=== PATIENT | female | born 2000 | race Caucasian/White ===

== ENCOUNTER 2020-12-21 03:11 | Emergency (ER) | payer MEDICAID ==
[~2020-12-21] VITALS: Ht 160 cm; Wt 43.2 kg
[~2020-12-21 03:11] MED LIST: DIVA-81 PO; QUET200T5 PO
--- NOTE | 2020-12-21 04:42 | NUR ---
pt sleeping on left side, unresponsive to verbal or painful stimuli. dr. greene ordering more narcan. pt spo2 96%
[2020-12-21] MEDS ORDERED: naloxone 0.4 mg/ml inj NAS ONE (04:45)
[2020-12-21] MEDS ORDERED: NALO4SPR BOTHNARES (04:55)
[2020-12-21 09:18] VITALS: BP 106/65
--- NOTE | 2020-12-21 09:24 | NUR ---
pt vitals stable spo2 100% on ra ,pt wakes up with voice asked if she has family in [place] pt said yes and noded head but still not full awake.
== END 2020-12-21 11:52 | disposition home or self-care (01) ==
LOC: ER 03:12
DX: T40.1X1A Poisoning by heroin, accidental (unintentional), initial encounter (principal); R45.1 Restlessness and agitation; J45.909 Unspecified asthma, uncomplicated; F11.90 Opioid use, unspecified, uncomplicated; Z72.89 Other problems related to lifestyle; Z88.8 Allergy status to other drugs, medicaments and biological substances; Z79.899 Other long term (current) drug therapy; Y92.89 Other specified places as the place of occurrence of the external cause
CPT/HCPCS: 99285; J2310

== ENCOUNTER 2021-03-14 00:41 | Emergency (ER) | payer MEDICAID ==
[~2021-03-14] VITALS: Ht 157.5 cm; Wt 43.0 kg
[~2021-03-14 00:41] MED LIST changes: +NALO4SPR BOTHNARES
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
[2021-03-14 01:14] VITALS: BP 135/87
--- NOTE | 2021-03-14 01:53 | NUR ---
case report received from [facility]. case number is [id number]
--- NOTE | 2021-03-14 02:14 | NUR ---
pt left before medical clearance by doctor greene. pt left AMA
== END 2021-03-14 02:25 | disposition home or self-care (01) ==
LOC: ER 00:41
DX: S09.8XXA Other specified injuries of head, initial encounter (principal); X58.XXXA Exposure to other specified factors, initial encounter; Y93.89 Activity, other specified; Y92.89 Other specified places as the place of occurrence of the external cause; Y99.8 Other external cause status
CPT/HCPCS: 70450; 99284

== ENCOUNTER 2021-05-25 05:09 | Emergency (ER) | payer MEDICAID, OTHER ==
[~2021-05-25] VITALS: Ht 160 cm; Wt 44.5 kg
[2021-05-25 05:11] VITALS: BP 120/79
--- NOTE | 2021-05-25 05:31 | NUR ---
dr mclaughlin and jan refrigeration supervisor sart nurse notified. [facility] notified and sending patient advocate (shasta).
--- NOTE | 2021-05-25 05:35 | NUR ---
REQUEST FOR MEDICAL RECORDS FROM [facility] FAXED.
[2021-05-25] MEDS ORDERED: CefTRIAXone 500MG IM Kit w/LIDOcaine IM ONE (08:25)
[2021-05-25] MEDS ORDERED: LEVONORGESTREL 1.5MG tablet 1.5 MG TABLET PO ONE (08:30)
[2021-05-25] MEDS ORDERED: metroNIDAZOLE 500mg tablet PO ONE (09:30)
[2021-05-25] MEDS ORDERED: DOXYCYCLINE 100MG CAPSULE PO ONE ×2 (09:30→09:40)
[2021-05-25] MEDS ORDERED: CefTRIAXone 1000mg IM Kit (w/lidocaine diluent) IM ONE (09:40)
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
== END 2021-05-25 14:17 | disposition left against medical advice (07) ==
LOC: EEVIPCON 05:09 → ER 05:09
DX: Z53.21 Procedure and treatment not carried out due to patient leaving prior to being seen by health care provider (principal)
CPT/HCPCS: J0696

== ENCOUNTER 2021-10-06 16:37 | Emergency (ER) | payer MEDICAID, OTHER ==
[~2021-10-06] VITALS: Ht 160 cm; Wt 43.2 kg
[2021-10-06 17:13] VITALS: BP 126/83
== END 2021-10-06 17:58 | disposition left against medical advice (07) ==
LOC: ER 16:38
DX: L02.91 Cutaneous abscess, unspecified (principal); Z53.21 Procedure and treatment not carried out due to patient leaving prior to being seen by health care provider

== ENCOUNTER 2021-12-16 16:41 | Emergency (ER) | payer MEDICAID ==
[~2021-12-16] VITALS: Ht 160 cm; Wt 40.9 kg
[2021-12-16 17:14] VITALS: BP 116/81
== END 2021-12-16 19:04 | disposition left against medical advice (07) ==
LOC: ER 16:42
DX: M79.604 Pain in right leg (principal); Z53.21 Procedure and treatment not carried out due to patient leaving prior to being seen by health care provider

== ENCOUNTER 2025-01-26 22:55 | Emergency (ER) | payer MEDICAID ==
[~2025-01-26] VITALS: Ht 160 cm; Wt 46.5 kg
[2025-01-26 23:59] LABS: URINE HCG NEGATIVE (NEG)
[2025-01-27 00:37] LABS: LEUKOCYTE ESTERASE ,URINE NEGATIVE (Neg); NITRITES, URINE NEGATIVE (Neg); OCCULT BLOOD,URINE NEGATIVE (Neg)
[2025-01-27 00:41] LABS: UA COLLECTION TYPE CLN CATCH MIDSTREAM
[2025-01-27] MEDS ORDERED: CLIN-197 PO (01:14)
--- NOTE | 2025-01-27 01:14 | Physician Documentation ---
History of Present Illness ~ Chief Complaint: STD Stated Complaint: DENTAL PAIN Time Seen by MD: 23:47 HPI 24 year old female requesting treatment for dental pain and would like to be tested for STIs. Does not have urinary symptoms. Denies fever, cough, abdominal pain, swallowing difficulty. Medication Reconciliation Allergies: Coded Allergies: oxycodone (Verified Allergy, Severe, HIVES, 05/25/21) Scheduled Divalproex Sodium (Depakote Er), 250 MG PO DAILY, (Reported) Naloxone HCl (Narcan), 1 SPRAYS BOTHNARES ONCE Quetiapine Fumarate (Seroquel Xr), 1 TABLET PO HS Past Medical History Past Medical History: Asthma Past Surgical History: no surgical history Smoking Status: Current every day smoker Alcohol Use: Occasionally Drug Use: heroin Lives with: Mother Lives In: Home Review of Systems All Other Systems at this time: Reviewed and Negative Physical Exam Vital Signs: RN Vital Signs have been reviewed: Yes, Temperature: 97.2, Source: Temporal, Heart Rate: 93, Respiratory Rate: 16, BP: 127/75, Pulse Oximetry: 95, Weight: 46.500 Oxygen Flow Rate: 0 Physical Exam HEENT: PERRL, moist oral mucosa, EOMI Pulmonary: No respiratory distress MSK: no deformity Skin: w/d/i, no rash Neuro: alert, nonfocal Psych: normal affect Progress Results/Orders Results/Orders Orders - CONSUELO ESPINOZA MD Chlamydia/Gc Pcr (01/27/25 00:17) Completed Orders - CONSUELO ESPINOZA MD Urinalysis, Cult If Indicated (01/26/25 23:08) Hcg, Ur Ql (01/26/25 23:08) Clindamycin Capsule (Cleocin Capsule) (01/27/25 00:20) Medications Received in ER Medications (Trade) Dose Ordered Sig/Clover Route PRN Reason Start Time Stop Time Status Last Admin Dose Admin (Cleocin capsule) 300 mg ONCE ONCE PO 01/27/25 00:20 01/27/25 00:21 DC 01/27/25 00:34 300 MG Vital Signs 01/26/25 23:00 Temp 97.2 Pulse 93 Resp 16 B/P (MAP) 127/75 Pulse Ox 95 O2 Flow Rate 0 Laboratory Tests Test 01/26/25 23:00 Urine Specimen Description Cln catch midstream Urine Color Yellow Urine Clarity Clear Urine pH 6.0 Urine Specific [place] 1.025 Urine Protein Negative Urine Glucose (UA) Negative Urine Ketones Negative Urine Occult Blood Negative Urine Nitrite Negative Urine Bilirubin Negative Urine Urobilinogen 0.2 Urine Leukocyte Esterase Negative Urine Culture Indicated Not ind Volume Urine Centrifuged 10 ml Urine HCG, Qualitative Negative Urine Comment Medical Decision Making Additional information obtaine: N/A Findings 24 year old female with dental abscess and requesting STI testing. Rx ABx, return precautions, STI testing is send out. Urinary Diff Dx:Considerations: Include: Other Genital Diff Dx:Considerations: Include: Other Additional Comment Ddx = STI, dental abscess, dental caries Departure Disposition: HOME / SELF CARE / HOMELESS Impression: Primary Impression: Pain, dental Condition: Stable Discharge Instructions: Dental Abscess Referrals: NO PRIMARY CARE PROVIDER (PCP) Prescriptions Clindamycin HCl (Clindamycin HCl) 300 Mg Capsule 1 CAP PO Q8H for 10 Days, #30 CAP Prov: CONSUELO ESPINOZA MD 01/27/25 Education Educated: Patient Educated regarding: diagnosis, treatment, prognosis, need for follow up Signature Scribe Signature: . Attestation: . CONSUELO ESPINOZA MD Jan 27, 2025 01:14
[2025-01-27 01:37] VITALS: BP 125/70; PULSE 90; RESP 18; TEMP 98.6; O2SAT 99
== END 2025-01-27 01:38 | disposition home or self-care (01) ==
LOC: ER 22:56
DX: K08.89 Other specified disorders of teeth and supporting structures (principal); J45.909 Unspecified asthma, uncomplicated; F11.90 Opioid use, unspecified, uncomplicated; F17.200 Nicotine dependence, unspecified, uncomplicated; Z88.5 Allergy status to narcotic agent; Z79.899 Other long term (current) drug therapy; Z72.89 Other problems related to lifestyle
CPT/HCPCS: 36415; 81003; 81025; 87491; 99283